=== PATIENT | female | born 1975 | race Hispanic/Latino ===

== ENCOUNTER 2017-02-28 15:00 | Emergency (ER) | payer SELFPAY ==
[2017-02-28 15:32] VITALS: BP 125/86
[2017-02-28] MEDS ORDERED: DELTASONE PO ONE (16:00)
[2017-02-28] MEDS ORDERED: BENADRYL PO ONE (16:00)
[2017-02-28] MEDS ORDERED: REGLAN PO ONE (16:00)
--- NOTE | 2017-02-28 16:04 | Emergency Department Report ---
ED Animal Bite HPI - General Chief Complaint: Animal Bite Stated Complaint: SPIDER BITE Time Seen by Provider: 02/28/17 15:50 Source: patient Mode of arrival: Ambulatory Limitations: No Limitations - History of Present Illness Initial Comments: right breast insect bite 2 months ago complains of itching burning erythema no discharge no fever open lesion MD Complaint: other (insect bite ) Onset/Timin -: month(s) Location: other (right lateral breast ) Animal: other (? spider ) Animal Control Notified: No Mechanism: other (bite / sting unkown ) Pain Description: burning, intermittent Severity scale (0 -10): 4 Context: other (camping trip) Associated Symptoms: erythema, other (itching ) - Related Data Patient Tetanus UTD: Yes Previous Rx's Medication Instructions Recorded Last Taken Type Metoclopramide [Reglan] 10 mg PO ACHS #28 tablet 02/28/17 Unknown Rx Prednisone [predniSONE 10 mg 10 mg PO .TAPER #1 tab.ds.pk 02/28/17 Unknown Rx (6-Day Pack, 21 Tabs)] Triamcinolone Aceton 0.1% (Nf) 1 applic TP BID #1 tube 02/28/17 Unknown Rx [Kenalog (NF)] diphenhydrAMINE [Benadryl CAP] 25 mg PO Q6HR PRN #30 capsule 02/28/17 Unknown Rx Allergies Allergy/AdvReac Type Severity Reaction Status Date / Time No Known Allergies Allergy Unverified 02/28/17 15:25 ED Review of Systems ROS: Stated complaint: SPIDER BITE Other details as noted in HPI Constitutional: denies: chills, fever Eyes: denies: eye pain, eye discharge, vision change ENT: denies: ear pain, throat pain Respiratory: denies: cough, shortness of breath, wheezing Cardiovascular: denies: chest pain, palpitations Endocrine: no symptoms reported Gastrointestinal: denies: abdominal pain, nausea, diarrhea Genitourinary: denies: urgency, dysuria, discharge Musculoskeletal: denies: back pain, joint swelling, arthralgia Skin: lesions, pruritus Neurological: denies: headache, weakness, paresthesias Psychiatric: denies: anxiety, depression Hematological/Lymphatic: denies: easy bleeding, easy bruising ED Past Medical Hx - Past Medical History Hx Liver Disease: Yes (HEP C) - Surgical History Additional Surgical History: TUBAL LIGATION. PARTIAL HYSTERECTOMY - Social History Smoking Status: Current Every Day Smoker Substance Use Type: None - Medications Home Medications: Home Medications Medication Instructions Recorded Confirmed Last Taken Type Metoclopramide [Reglan] 10 mg PO ACHS #28 tablet 02/28/17 Unknown Rx Prednisone [predniSONE 10 mg 10 mg PO .TAPER #1 tab.ds.pk 02/28/17 Unknown Rx (6-Day Pack, 21 Tabs)] Triamcinolone Aceton 0.1% (Nf) 1 applic TP BID #1 tube 02/28/17 Unknown Rx [Kenalog (NF)] diphenhydrAMINE [Benadryl CAP] 25 mg PO Q6HR PRN #30 capsule 02/28/17 Unknown Rx ED Physical Exam - General Limitations: No Limitations General appearance: alert, in no apparent distress - Head Head exam: Present: atraumatic, normocephalic - Eye Eye exam: Present: normal appearance, PERRL - ENT ENT exam: Present: mucous membranes moist - Neck Neck exam: Present: normal inspection - Respiratory Respiratory exam: Present: normal lung sounds bilaterally. Absent: respiratory distress - Cardiovascular Cardiovascular Exam: Present: regular rate, normal rhythm. Absent: systolic murmur, diastolic murmur, rubs, gallop - GI/Abdominal GI/Abdominal exam: Present: soft, normal bowel sounds - Rectal Rectal exam: Present: deferred - Extremities Exam Extremities exam: Present: normal inspection, full ROM - Back Exam Back exam: Present: normal inspection, full ROM. Absent: tenderness, CVA tenderness (R), CVA tenderness (L), muscle spasm, paraspinal tenderness, vertebral tenderness - Neurological Exam Neurological exam: Present: alert, oriented X3, CN II-XII intact, normal gait, reflexes normal - Psychiatric Psychiatric exam: Present: normal affect, normal mood - Skin Skin exam: Present: other (right breast lesion erythema flaky dry pruritis 1x1 irregular shape no discharge no blood no lymph ) - Expanded Skin Exam Expanded Type of lesion: Present: bite/sting Description of rash: Present: tenderness, erythematous, purpuic, crusting. Absent: swelling, macular, papular, confluent, bullous, urticarial, discharge, fluctuant, indurated 1 - right breast lesion rash erythema dry flaky no discharge pain to palpation ED Course Vital Signs 02/28/17 15:29 Temperature 97.8 F Pulse Rate 80 Respiratory 16 Rate Blood Pressure 125/86 O2 Sat by Pulse 100 Oximetry Critical care attestation.: If time is entered above; I have spent that time in minutes in the direct care of this critically ill patient, excluding procedure time. ED Disposition Clinical Impression: Insect bite or sting Disposition: DC-01 TO HOME OR SELFCARE Is pt being admited?: No Does the pt Need Aspirin: No Condition: Good Prescriptions: diphenhydrAMINE [Benadryl CAP] 25 mg PO Q6HR PRN #30 capsule PRN Reason: Allergy Symptoms Metoclopramide [Reglan] 10 mg PO ACHS #28 tablet Prednisone [predniSONE 10 mg (6-Day Pack, 21 Tabs)] 10 mg PO .TAPER #1 tab.ds.pk Triamcinolone Aceton 0.1% (Nf) [Kenalog (NF)] 1 applic TP BID #1 tube Referrals: PRIMARY CARE,MD [Primary Care Provider] - 3-5 Days Forms: Work/School Release Form(ED) Time of Disposition: 16:12
== END 2017-02-28 16:33 | disposition home or self-care (01) ==
LOC: ED 15:00
DX: S20.161A Insect bite (nonvenomous) of breast, right breast, initial encounter (principal); F17.200 Nicotine dependence, unspecified, uncomplicated; W57.XXXA Bitten or stung by nonvenomous insect and other nonvenomous arthropods, initial encounter; Y93.9 Activity, unspecified; Y92.9 Unspecified place or not applicable; Y99.9 Unspecified external cause status
CPT/HCPCS: 99282; J7512; Q0163